=== PATIENT | female | born 1995 | race Two or more races ===

== ENCOUNTER 2024-11-03 10:26 | Emergency (ER) | payer BC, SELFPAY ==
[2024-11-03 10:27] VITALS: BMI 23.6
--- NOTE | 2024-11-03 11:16 | XR_ITS ---
Examination: PA lateral chest 2 views TECHNIQUE: Upright PA lateral chest 2 views Exam date and time: November 03, 2024 1120 hours INDICATIONS: Coughing today. FINDINGS: Normal heart size Lungs are clear. The osseous structures are intact IMPRESSION: No active disease
--- NOTE | 2024-11-03 11:16 | PD.EDRME ---
Rapid Medical Screening Exam RME Arrival date/time: 11/03/24 10:26 29-year-old female presents to the emergency department today with complaints of neck pain and generalized bodyaches Chief Complaint: Neck Pain/Injury
[2024-11-03 11:21] VITALS: BP 128/87; PULSE 128; RESP 18; TEMP 37.2; O2SAT 98; BMI 22.3
[2024-11-03 12:06] LABS: Basophils % (Auto) 0 % (0-2.5); Eosinophils # (Auto) 0.1 Thou/mm3 (0.0-0.5); Eosinophils % (Auto) 1 % (0-10); Hemoglobin 14.2 g/dL (12.0-16.0); Immature Granulocytes % (Auto) 1 % (0-0); Immature Granulocytes Auto 0.06 Thou/mm3 (0.00-0.00); Lymphocytes # (Auto) 1.9 Thou/mm3 (1.0-4.8); Lymphocytes % (Auto) 24 % (10-50); Mean Corpuscular HGB Conc 34.6 g/dl (31.0-37.0); Mean Corpuscular Hemoglobin 30.6 pg (25.0-35.0); Mean Corpuscular Volume 88 fL (80-100); Monocytes # (Auto) 0.4 Thou/mm3 (0.0-0.8); Monocytes % (Auto) 5 % (0-12); Neutrophils # (Auto) 5.4 Thou/mm3 (1.8-7.7); Neutrophils % (Auto) 69 % (37-80); Nucleated Red Blood Cell % 0 /100 WBC (0); Platelet Count 312 Thou/mm3 (140-440); RDW Standard Deviation 36.3 fL (36.4-46.3); Red Blood Count 4.64 Miln/mm3 (4.00-5.20); White Blood Count 7.9 Thou/mm3 (3.6-11.0)
[2024-11-03 12:22] LABS: HCG,Qualitative Serum Negative
[2024-11-03 12:24] LABS: Alanine Aminotransferase 18 U/L (10-49); Alkaline Phosphatase 84 U/L (46-116); Anion Gap 10 (7-16); Aspartate Amino Transferase 14 U/L (0-34); BUN/Creatinine Ratio 17 Ratio (12-20); Bilirubin,Total 0.4 mg/dL (0.3-1.2); Blood Urea Nitrogen 12 mg/dL (9-23); Calcium 9.6 mg/dL (8.3-10.6); Calcium (Corrected) 9.6 mg/dL (8.5-10.1); Carbon Dioxide 23.4 mMol/L (20.0-31.0); Chloride 107 mMol/L (98-107); Creatinine (Component) 0.7 mg/dL (0.6-1.3); Estimated Creatinine Clearance 88.7 mL/min (>60); Globulin 2.5 gm/dL (2.3-3.5); Glucose 96 mg/dL (74-106); Osmolality,Calculated 279 (275-295); Potassium 3.8 mMol/L (3.4-5.1); Sodium 140 mMol/L (136-145); Total Protein 7.5 gm/dL (5.7-8.2); eGFR > 60 See Note
[2024-11-03 13:29] VITALS: BP 123/84; PULSE 110; RESP 18; TEMP 37.1; O2SAT 99
--- NOTE | 2024-11-03 13:51 | EDNOTE_ITS ---
ED General RME/HPI General Chief complaint: Neck Pain/Injury Stated complaint: FLU LIKE SYMPT X1 WK NOW HAVING NECK PAIN Time Seen by Provider: 11/03/24 13:49 Arrival date/time: 11/03/24 10:26 CC: Body aches subjective fever, neck and upper back pain HPI ongoing for 1 week, patient denies fall repetitive motion OTC medicines not helping. Patient was prescribed amoxicillin by PCP 3 days ago. Patient states at that time the neck stiffness started. RME / HPI RME / HPI narrative: 11/03/24 10:26 29-year-old female presents to the emergency department today with complaints of neck pain and generalized bodyaches Related Data Previous Rx's ?Medication ?Instructions ?Recorded cyclobenzaprine 10 mg tablet 10 mg PO BID PRN muscle spasm #14 11/03/24 tabs meloxicam 7.5 mg tablet 7.5 mg PO QDAY #14 tabs 11/03/24 oseltamivir 75 mg capsule (Tamiflu) 75 mg PO BID 5 days #10 caps 11/03/24 Allergies Allergy/AdvReac Type Severity Reaction Status Date / Time No Known Allergies Allergy Verified 11/03/24 10:30 Review of Systems Review of Systems Narrative Review of Systems: GEN: No fever, no chills, no weight loss EYES: No discharge, no visual changes, no pain, denies photophobia HEENT: No ear pain, no congestion, no sore throat PULM: No shortness of breath, no cough, no congestion CV: No chest pain, no dyspnea on exertion, no palpitations GI: No nausea, no vomiting, no diarrhea, no pain, no constipation : No frequency, no urgency, no dysuria MUSC/SKEL: No joint pain, no back pain, + neck pain SKIN: No rash PSYCH: No hallucinations, no depression HEME/LYMPH: No easy bleeding or bruising tendencies NEURO: No weakness, no headache Past Medical History Social History SMOKING STATUS: Never smoker ED Exam Narrative Physical exam: [General: Mild discomfort but not in any acute distress Head normocephalic HEENT: Eyes: Pupils are PERRLA EOMs are intact all other subsystems of HEENT are within acceptable limits Neck is tender to palpation cervical paraspinal and lateral both left and right with palpation there is also tenderness to palpation the base of the neck extending out into the shoulders. The patient has pain with lateral rotation flexion and extension. But does not have nuchal rigidity. Chest equal chest rise nontender to palpation Respiratory: Clear to auscultation no wheezes crackles or rubs CV: Rate rhythm is regular no murmurs rubs or clicks Abdomen is distended secondary to body habitus soft nontender no masses positive bowel sounds all 4 quadrants Back: No CVA tenderness no spinous process tenderness from cervical spine thoracic and lumbar spine Skin: Intact no petechiae rash induration ulceration or crepitus Extremities: Moving all extremity against resistance cap refill less than 2 seconds neurosensory intact Neuro: Awake alert oriented x3 Glascow coma 15 no focal deficits] Course Course Course Narrative: Pt case and pt assessed by Dr Gomez prior to discharge Quality Measures none Orders Category Date Time Status Bedside COVID-19 Antigen Test NOW Care 11/03/24 11:16 Active Bedside Influenza A&B Antigen Test NOW Care 11/03/24 11:16 Completed XR chest 2V Stat Exams 11/03/24 11:16 Completed CBC Stat Lab 11/03/24 11:47 Completed CMP [Comprehensive Metabolic Panel] Stat Lab 11/03/24 11:47 Completed HCG,Qualitative Serum Stat Lab 11/03/24 11:47 Completed Ketorolac Inj [Toradol Inj] Med 11/03/24 13:49 Discontinued 30 mg IM X1 ONE Vital Signs Vital signs: Vital Signs Temperature 98.9 F 11/03/24 11:21 Pulse Rate 128 H 11/03/24 11:21 Respiratory Rate 18 11/03/24 11:21 Blood Pressure 128/87 H 11/03/24 11:21 Pulse Oximetry (%) 98 11/03/24 11:21 Oxygen Delivery Method Room Air 11/03/24 11:21 [facility] Patient data External records reviewed:: [facility] previous records Clinical information provided by:: patient and spouse Social determinants that could affect healthcare access:: none Patient has the following chronic illnesses:: None How is presenting disease/condition affected by chronic disease/condition?: u neffected by Evaluation data The following diagnostics were reviewed and interpreted by me:: lab results and radiology exam(s) Lab and/or radiology exams considered but not ordered:: Influenza A and B+ COVID is negative CBC shows no acute leukocytosis anemia thrombocytopenia CMP shows close no electrolyte imbalances renal impairment transaminitis or T. bili elevation. Chest x-ray entered by me read by radiology as negative for any acute finding. Interpretation Summary: Low index of suspicion that this is meningitis as the patient has had symptoms for 5 days with no phonophobia. Pain is all reproducible with palpation. The patient has no significant guarding. This time the patient will be discharged home with Tamiflu cyclobenzaprine and meloxicam. Medications Medications considered but not ordered:: None Medication administrations:: Medication Administration History Discontinued Medications Ketorolac Tromethamine (Ketorolac Inj 60 Mg/2 Ml Vial) 30 mg IM X1 ONE Stop: 11/03/24 13:50 None Consultations Consultation(s) initiated? (list below): No Diagnosis Differential Diagnosis ED Complaint MDM: Pneumonia Most likely diagnosis given after review of the tests above:: Influenza A influenza B, neck pain Admission Indicated Admission indicated?: not indicated Explain why admission is indicated or not indicated:: Stable problems Admission Request Was there a request for admission?: No Disposition Plan Disposition Plan: Discharge Discharge Attestation Discharge Attestation: The patient and all family members were given an opportunity to ask questions and understood the discharge instructions. Discharge instructions specifically effects, indications for sooner follow up or return to the emergency department, and the expected course of current diagnosis. Patient condition: Stable Medical Decision Making Differential Diagnosis Differential Diagnosis: Pneumonia Lab Data 11/03/24 11:47 11/03/24 11:47 Labs: Lab Results 11/03/24 Range/Units 11:47 WBC 7.9 (3.6-11.0) Thou/mm3 RBC 4.64 (4.00-5.20) Miln/mm3 Hgb 14.2 (12.0-16.0) g/dL Hct 41.0 (36.0-46.0) % MCV 88 (80-100) fL MCH 30.6 (25.0-35.0) pg MCHC 34.6 (31.0-37.0) g/dl RDW Std Deviation 36.3 L (36.4-46.3) fL Plt Count 312 (140-440) Thou/mm3 Neut % (Auto) 69 (37-80) % Lymph % (Auto) 24 (10-50) % [place] % (Auto) 5 (0-12) % Eos % (Auto) 1 (0-10) % Baso % (Auto) 0 (0-2.5) % Neut # (Auto) 5.4 (1.8-7.7) Thou/mm3 Lymph # (Auto) 1.9 (1.0-4.8) Thou/mm3 [place] # (Auto) 0.4 (0.0-0.8) Thou/mm3 Eos # (Auto) 0.1 (0.0-0.5) Thou/mm3 Baso # (Auto) 0.0 (0.0-0.2) Thou/mm3 Immature Gran # (Auto) 0.06 H (0.00-0.00) Thou/mm3 Absolute Nucleated RBC 0.00 (0.00-0.00) Thou/mm3 Immature Gran % 1 H (0-0) % Nucleated RBC % 0 (0) /100 WBC Sodium 140 (136-145) mMol/L Potassium 3.8 (3.4-5.1) mMol/L Chloride 107 (98-107) mMol/L Carbon Dioxide 23.4 (20.0-31.0) mMol/L Anion Gap 10 (7-16) BUN 12 (9-23) mg/dL Creatinine 0.7 (0.6-1.3) mg/dL Estim Creat Clear Calc 88.7 (>60) mL/min eGFR > 60 (60 - ) See Note BUN/Creatinine Ratio 17 (12-20) Ratio Glucose 96 (74-106) mg/dL Calculated Osmolality 279 (275-295) Calcium 9.6 (8.3-10.6) mg/dL Corrected Calcium 9.6 (8.5-10.1) mg/dL Total Bilirubin 0.4 (0.3-1.2) mg/dL AST 14 (0-34) U/L ALT 18 (10-49) U/L Alkaline Phosphatase 84 (46-116) U/L Total Protein 7.5 (5.7-8.2) gm/dL Albumin 5.0 (3.5-5.0) gm/dL Globulin 2.5 (2.3-3.5) gm/dL Albumin/Globulin Ratio 2.0 (1.2-2.2) HCG, Qual Negative Discharge Plan Plan Patient Disposition: HOME (Self Care) Patient condition on transfer: Stable Prescriptions/Referrals Prescriptions/Med Rec: New cyclobenzaprine 10 mg tablet 10 mg PO BID PRN (Reason: muscle spasm) Qty: 14 0RF oseltamivir [Tamiflu] 75 mg capsule 75 mg PO BID 5 Days Qty: 10 0RF meloxicam 7.5 mg tablet 7.5 mg PO QDAY Qty: 14 0RF Referrals: Foster Humphrey MD [Physician] - In 1 week No Primary/Family,Physician [Primary Care Provider] - In 1 week Problem List Clinical Impression: Cervical radiculopathy, Influenza A, Influenza B Patient/Caregiver Discharge Instructions Education Materials: ED Influenza (Adult), ED Back and Neck Pain, General Print Language: Welsh Stand Alone Forms: Em Award Info., Patient Portal Info Letter, Work/School Release 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
[2024-11-03] MEDS: KETOROLAC INJ 60 MG/2 ML VIAL 30 MG IM (14:09)
== END 2024-11-03 14:29 | disposition home or self-care (01) ==
PROVIDERS: Nurse Practitioner Primary Care; Emergency Provider Emergency Medicine
DX: J10.1 Influenza due to other identified influenza virus with other respiratory manifestations (principal); M54.12 Radiculopathy, cervical region
CPT/HCPCS: 36415; 71046; 80053; 84703; 85025; 87400; 87811; 96372; 99283; J1885